=== PATIENT | female | born 1985 | race Caucasian/White ===

== ENCOUNTER 2019-11-08 23:29 | Emergency (ER) | payer OTHER ==
--- NOTE | 2019-11-09 00:26 | ER Document Report ---
ED General - General Chief Complaint: Chest Tightness Stated Complaint: CHEST PAIN,RAPID HEART BEAT,TINGLING HANDS Notes: Patient is a 34-year-old white female with past medical history of anxiety who was recently diagnosed with laryngitis who presents to the emergency department the chief complaint of heart racing after using albuterol inhaler. The patient reports that she was seen by her doctor recently diagnosed with laryngitis and was given an albuterol inhaler for symptomatic measures. She states she used 1 puff earlier this evening and shortly after began feeling like her heart was racing she states this put her into a episode of anxiety where she began having her typical symptoms of tingling in the fingers, hyper respirations and felt a sudden sense of panic in relation to her symptoms. She states she since calm down has not used the albuterol inhaler anymore. She was unsure if she should take her Ativan so she came for evaluation. She reports that she takes Ativan as needed for anxiety every now and then but very infrequently. She denies any chest pain or shortness of breath. TRAVEL OUTSIDE OF THE [place] IN LAST 30 DAYS: No - Related Data Allergies/Adverse Reactions: cephalexin [From Keflex] Allergy (Verified 11/09/19 00:21) nitrofurantoin [From Macrobid] Allergy (Verified 11/09/19 00:21) prednisone Allergy (Verified 11/09/19 00:21) Home Medications: ativan prn, proventil inh Past Medical History - Social History Smoking Status: Never Smoker Family History: None Patient has suicidal ideation: No Patient has homicidal ideation: No Review of Systems - Review of Systems Cardiovascular: Heart racing Neurological/Psychological: Anxiety -: Yes All other systems reviewed and negative Physical Exam - General General appearance: Appears well, Alert In distress: None - Respiratory Respiratory status: No respiratory distress Chest status: Nontender Breath sounds: Normal Chest palpation: Normal - Cardiovascular Rhythm: Regular Heart sounds: Normal auscultation Murmur: No - Extremities General upper extremity: Normal inspection, Nontender, Normal color, Normal ROM, Normal temperature General lower extremity: Normal inspection, Nontender, Normal color, Normal ROM, Normal temperature, Normal weight bearing. No: Leelee's sign - Neurological Neuro grossly intact: Yes Cognition: Normal Orientation: AAOx4 - Psychological Associated symptoms: Normal affect, Normal mood - Skin Skin Temperature: Warm Skin Moisture: Dry Skin Color: Normal Course - Re-evaluation Re-evalutation: 11/09/19 00:25 Patient is EKG with the exception of sinus tachycardia are largely unremarkable. Upon being pulled in the triage her heart rate was down to 100 bpm. She is in no acute distress, stable and appropriate for discharge and outpatient follow- up. History and physical consistent with an adverse reaction to the albuterol given its common reactions of tachycardia and the effects of some folks experience that she described. She will discontinue this medicine. She will wait till she gets home and take her prescribed dose of Ativan. She will follow-up with her doctor on Sunday morning for reevaluation. I advised she return here or any ER immediately with any new, persistent or worsening symptoms. She verbalized understood and agreed. Discharge - Discharge Clinical Impression: Tachycardia, Anxiety Adverse reaction to drug Qualifiers: Encounter type: initial encounter Qualified Code(s): T50.905A - Adverse effect of unspecified drugs, medicaments and biological substances, initial encounter Condition: Stable Disposition: HOME, SELF-CARE Instructions: Anxiety ([facility]) Additional Instructions: Follow-up with your regular doctor in 2 to 3 days for reevaluation. Return here or any ER immediately with any new, persistent or worsening symptoms.
[2019-11-09 00:37] VITALS: BP 118/54
--- NOTE | 2019-11-10 00:35 | EKG REPORT ---
SEVERITY:- ABNORMAL ECG - SINUS TACHYCARDIA MARK, CONSIDER BIATRIAL ABNORMALITIES : Confirmed by: Chip Britt 10-Nov-2019 00:34:24
== END 2019-11-09 00:30 | disposition home or self-care (01) ==
LOC: ER 23:29
DX: F41.9 Anxiety disorder, unspecified (principal); R00.0 Tachycardia, unspecified; T50.905A Adverse effect of unspecified drugs, medicaments and biological substances, initial encounter; J04.0 Acute laryngitis; R20.2 Paresthesia of skin; Z88.1 Allergy status to other antibiotic agents; Z88.8 Allergy status to other drugs, medicaments and biological substances
CPT/HCPCS: 93005; 93010; 99283